=== PATIENT | female | born 1990 | race Caucasian/White ===

== ENCOUNTER 2022-06-09 10:36 | Day surgery (SDC) | payer MEDICAID, SELFPAY ==
[2022-06-09 11:04] LABS: Internal QC Validated? YES +Cl - CLEAR BKGD; Pregnancy, Urine Negative Negative
[2022-06-09] MEDS: Lactated Ringers 1,000 ML 15 ML IV (11:08)
[2022-06-09 11:09] VITALS: BP 112/67; PULSE 108; RESP 18; TEMP 37.5; O2SAT 96; BMI 42.5
--- NOTE | 2022-06-09 12:12 | HP.PCM_ITS ---
HPI - General HPI Narrative SUZANNE PICKARD, is a 32 F who has a history of multiple congenital abnormalities and multiple subsequent surgical interventions including on her urinary system. She has a neurogenic bladder with urinary retention and caths herself on a regular basis daily. She presents for a cystoscopic evaluation and injection of Botox, informed consent has been obtained. She is currently on antibiotics for a positive urine culture. She will continue these postoperatively. [facility]LY [facility] Medical History (Updated 06/09/22 @ 12:[address] Jocelyn Greer MD) Ambulates with cane Hx of fracture of leg Neurogenic bladder Non-smoker Shortness of breath on exertion Urge incontinence Urinary retention Home Medications cholecalciferol (vitamin D3) 50 mcg (2,000 unit) capsule 2,000 mcg PO DAILY 06/07/22 [History Last Taken 06/08/22] oxybutynin chloride 15 mg tablet,extended release 24 hr 15 mg PO DAILY 06/07/22 [History Last Taken 06/08/22] Allergy/AdvReac Type Severity Reaction Status Date / Time azithromycin Allergy Hives Verified 06/09/22 11:07 benzoin Allergy Other Verified 06/09/22 11:07 cefadroxil [From Duricef] Allergy Anaphylaxis Verified 06/09/22 11:07 codeine Allergy Vomiting Verified 06/09/22 11:07 latex Allergy Swelling Verified 06/09/22 11:07 nitrofurantoin Allergy Anaphylaxis Verified 06/09/22 11:07 [From Macrodantin] Surgical History (Updated 06/07/22 @ 09:49 by Hollie Arechiga) Hx of Achilles tendon repair Hx of knee surgery Hx of spinal fusion Hx of surgical procedure Hx of surgical procedure Hx of total hip arthroplasty Social History Smoking Status: Never smoker ROS Constitutional Constitutional: Denies anorexia, body ache(s), chills, fever(s) or weakness Eyes Eyes: Reports systems reviewed and no addt'l complaints, except as documented ENT HEENT: Reports systems reviewed and no addt'l complaints, except as documented Cardiovascular Cardiovascular: Denies chest pain or dyspnea at rest Respiratory/Chest Respiratory/Chest: Denies cough, dyspnea, hoarseness or inability to speak Gastrointestinal Gastrointestinal: Reports constipation; Denies nausea or vomiting Genitourinary Genitourinary: Reports urinary incontinence and other Details: Urinary retention, neurogenic bladder Musculoskeletal Musculoskeletal: Reports abnormal gait and difficulty walking Integumentary Integumentary: Reports systems reviewed and no addt'l complaints, except as documented Neurologic Neurologic: Reports abnormal gait and sensory deficit Psychiatric Psychiatric: Reports systems reviewed and no addt'l complaints, except as documented Endocrine Endocrinology: Reports systems reviewed and no addt'l complaints, except as documented Hematologic/Lymphatic Hematologic/Lymphatic: Reports systems reviewed and no addt'l complaints, except as documented Allergic/Immunologic Allergic/Immunologic: Reports systems reviewed and no addt'l complaints, except as documented Vital Signs Vital Signs Vital Signs: 06/09/22 11:09 06/09/22 11:09 Temperature 99.5 F H Temperature Source Temporal Pulse Rate 108 H Respiratory Rate 18 Respiratory Pattern Normal Blood Pressure 112/67 Blood Pressure Mean 82 Blood Pressure Source Monitor Blood Pressure Position Semi-Fowlers Blood Pressure Location Right Arm Pulse Ox 96 Oxygen Delivery Method Room Air Weight Weight: 68.492 kg Body Mass Index (BMI) 42.5 Physical Exam Const alert, oriented x3 and no apparent distress General Appearance: cooperative and comfortable HEENT normocephalic, head/scalp atraumatic, hearing grossly normal bilaterally and external nose normal Eyes General Eye: normal appearance of both eyes Neck supple General: normal visual inspection and trachea midline Lymph Lymphatic: no lymphedema noted Chest inspection of chest normal Resp normal respiratory effort, normal air movement and no retractions Cardio regular rate and regular rhythm GI soft to palpation, non-tender and non-distended no CVA tenderness Back/Spine no CVA tenderness Extremity no calf tenderness Skin no rashes or lesions noted, no wounds, skin turgor normal, no jaundice, no petechiae and no mottling Neuro oriented x3 Psych mental status grossly normal Results Lab / Micro Data Labs: Laboratory Results - last 24 hr 06/09/22 10:50: Urine Test Negative Assessment & Plan Assessment/Plan (1) Urge incontinence: (2) Neurogenic bladder: (3) Urinary retention: PLAN: Plan Proceed with cystoscopy, injection of Botox. Informed consent has been obtained.
[2022-06-09] MEDS: levoFLOXacin IV 500 MG/100 ML BAG 100 MG IV (12:35)
[2022-06-09] MEDS: Botulinum Toxin A 100 Units Vial 300 UNITS IJ (12:36)
[2022-06-09] MEDS: 0.9% Normal Saline (Pres. free 10 ML Vial (12:37)
[2022-06-09 12:49] VITALS: BP 106/68; BP 112/67; PULSE 107; RESP 16; TEMP 36.4; O2SAT 92
[2022-06-09 12:55] VITALS: BP 106/74; BP 112/67; PULSE 101; RESP 16; O2SAT 92
--- NOTE | 2022-06-09 12:59 | DCINST_ITS ---
Discharge Instructions Diet Discharge Diet: No restrictions Activity Discharge Activity: Return to Normal Activity Dressing / Incision Call your doctor if you observe: Fever of 101 or Higher Follow Up Care Please Follow Up With: Jocelyn Greer MD When: in the office in 2 weeks Test Results: Test results from this visit will be discussed in further detail at your follow- up appointment, if applicable. Discharge Plan Admission Attending Provider: Jocelyn Greer Primary Care Provider: Wally Chandra Discharge Orders/Prescriptions Prescriptions: Continued oxybutynin chloride 15 mg tablet extended release 24hr 15 mg PO DAILY Label Comments: TAKE 1 TABLET BY MOUTH EVERY DAY cholecalciferol (vitamin D3) 50 mcg (2,000 unit) capsule 2,000 mcg PO DAILY Label Comments: TAKE 1 CAPSULE BY MOUTH EVERY DAY Referrals / Follow Up: Wally Chandra DO [Primary Care Provider] - Disposition Disposition (needs filled in before D/C Order can be placed): Home, Self Care
[2022-06-09 13:00] VITALS: BP 104/74; BP 112/67; PULSE 98; RESP 16; O2SAT 92
--- NOTE | 2022-06-09 13:00 | OP.PCM_ITS ---
Report of Operation Date of Procedure: 06/09/22 Pre-Operative Diagnosis: Urge incontinence, neurogenic bladder, urinary retenti on Post-Operative Diagnosis: Same Surgery/Procedure Performed:: Cystoscopy, Botox 300 units injection Surgeon: Jocelyn Greer Type of Anesthesia: MAC Description of Procedure: Patient is a 32-year-old female with congenital abnormalities and subsequent neurogenic bladder with urinary retention and urge incontinence. She is on daily oxybutynin. She presents for cystoscopy and injection of Botox. Informed consent was obtained. She was taken to the operating room and placed on the operating room table. Anesthesia monitored the head, neck, airway, IV access and vital signs throughout the case. Once anesthesia was appropriately administered, the patient was placed into dorsolithotomy position was prepped and draped in usual sterile fashion. The cystoscope was inserted through the urethra under direct visualization into the urinary bladder. There were no masses, areas of erythema or abnormality identified. The bladder wall did appear to be thick. A total of 30 injections with 1 cc of Botox equivalent of 10 units/inj. were made. This was done in a systematic fashion throughout the bladder wall. At this time the patient's bladder was emptied and the cystoscope was removed. The case was terminated the patient was awakened and taken to the recovery room in good condition. There were no complications during this procedure. Grafts/Implants Used: None Complications None Admit VTE Documentation VTE Present on Admission: No VTE Mechan Device Prophylaxis: None VTE Pharm Prophylaxis ordered?: No Reason prophylaxis not ordered:: Treatment Not Indicated
[2022-06-09 13:05] VITALS: BP 105/72; BP 112/67; PULSE 90; RESP 16; TEMP 36.6; O2SAT 93
[2022-06-09 13:27] VITALS: BP 112/67; BP 91/59; PULSE 86; RESP 16; TEMP 36.5; O2SAT 95
== END 2022-06-09 13:42 | disposition home or self-care (01) ==
LOC: SDC 10:38 → AC 10:41
PROVIDERS: Anesthesiology; Referring Provider Urology; Visit Provider Urology
PROC: 3E0K8GC Introduction of Other Therapeutic Substance into Genitourinary Tract, Via Natural or Artificial Opening Endoscopic (ICD-10-PCS; CPT 52287; principal; 2022-06-09 12:00)
DX: R33.9 Retention of urine, unspecified (principal); N39.41 Urge incontinence; N31.9 Neuromuscular dysfunction of bladder, unspecified; Z98.1 Arthrodesis status; Z96.649 Presence of unspecified artificial hip joint
CPT/HCPCS: 51715; 00910; 81025; J7120; J0585; J2405; J3490

== ENCOUNTER → 2023-06-16 | Outpatient (CLI) | payer MEDICAID, SELFPAY ==
--- OUTSIDE RECORDS SUMMARY | 2023-06-16 16:48 | XMS RPT_ITS | CCD ---
Author Name Unknown Address [address] [place] [address] Organization [facility] Care Team Providers Care Corporate Manager Name Role Phone MARK CAMPBELL Unavailable Unavailable MARK CAMPBELL Unavailable Unavailable MARK CAMPBELL Unavailable Unavailable TRINIDAD RODRIGUEZ DO Primary Care Physician TRINIDAD RODRIGUEZ DO Primary Care Unavailable BRITTANY SALES, GISSEL Saez Attending Unavailable Allergies Allergy Classification Reported Allergen(s) Allergy Type Date of Onset Reaction(s) Facility (3 sources) Acetaminophen / HYDROcodone; Translations: [acetaminophen-hy drocodone] Drug Allergy [facility] (3 sources) Azithromycin; Translations: [azithromycin] Drug Allergy [facility] (3 sources) Cefadroxil; Translations: [cefadroxil] Drug Allergy [facility] (3 sources) Codeine; Translations: [codeine] Drug Allergy Dyspnea (finding) [facility] (3 sources) Iodine; Translations: [iodine] Drug Allergy [facility] (3 sources) Latex Allergy to substance [facility] Medications Current Medications Medication Drug Class(es) Dates Sig (Normalized) Sig (Original) [facility] (2 sources) Start: 01-21-2022 [facility] See Instructions, Bilateral Ankle-foot Orthosis Pt needing fitted for new braces. Dx: sacral agensis, # 1 EA, 0 Refill(s), 57.1 Start Date: 01/21/22 Status: Ordered 24 hr oxybutynin chloride 15 mg extended release oral tablet (3 sources) Cholinergic Muscarinic Antagonist Start: 11-08-2014 take 1 dose by mouth once daily Ditropan XL Dose : 15 mg =, Oral, qDay Start Date: 11/08/14 Status: Ordered Vitamin D3 50 mcg (2000 intl units) oral capsule (2 sources) Start: 01-14-2022 Vitamin D3 50 mcg (2000 intl units) oral capsule Dose : 2,000 unit(s) = 1 cap(s), Oral, Daily, # 100 cap(s), 3 Refill(s), Pharmacy: [facility]/pharmacy #[id number], Vitamin D insufficiency, 126, cm, 01/14/22 10:03:00 EDT, Height Start Date: 01/14/22 Status: Ordered Problems Active Problems Problem Classification Problem Date Documented Da te Episodic/Chronic Anxiety disorders (3 sources) Feeling irritable 12-08-2021 Episodic Genitourinary symptoms and ill-defined conditions (3 sources) Urinary incontinence 12-08-2021 Chronic Nutritional deficiencies (2 sources) Vitamin D deficiency 01-14-2022 Chronic Other congenital anomalies (3 sources) 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 Other diseases of bladder and urethra (3 sources) Neurogenic bladder 11-08-2014 Chronic Other nutritional; endocrine; and metabolic disorders (1 source) Body mass index 40+ - severely obese 12-08-2021 Chronic Residual codes; unclassified (3 sources) Family history of diabetes mellitus type 1 12-08-2021 Episodic Residual codes; unclassified (3 sources) Past history of procedure 12-08-2021 Episodic Unclassified (3 sources) Finding related to ability to manage personal health care 12-08-2021 Past or Other Problems Problem Classification Problem Date Documented Da te Episodic/Chronic Medical examination/evaluation (2 sources) Encounter for general adult medical examination with abnormal findings; Translations: [ENCOUNTER FOR GENERAL ADULT MEDICAL EXAM W ABNORMAL FINDINGS] Onset: 11-16-2016 Episodic Results Test Name Value Interpretation Reference Range Facil ity Encounters Encounter Date Encounter Type Care Provider Facility Start: 05-10-2023 End: 05-11-2023 ambulatory TRINIDAD RODRIGUEZ DO Facility:B Start: 05-10-2023 End: 05-10-2023 Patient encounter procedure GISSEL SOTO MD [facility] Start: 04-13-2022 End: 04-13-2022 Patient encounter procedure GISSEL SOTO MD [facility] Start: 01-07-2022 End: 01-07-2022 Patient encounter procedure TRINIDAD RODRIGUEZ DO [facility] Start: 11-16-2016 End: 11-17-2016 Ambulatory MARK CAMPBELL Facility:[facility] [place] Procedures Date Procedure Procedure Detail Performing Clinician Kyphoplasty of fract ure of spine using fluoroscopic guidance TRINIDAD RODRIGUEZ DO Total nephrectomy TRINIDAD PHELPS DO Immunizations Immunization Date Immunization Notes Care Provider [facility] 05-24-2021 SARS-CoV-2 mRNA (tozinameran) vaccine GISSEL S[facility] 04-02-2021 influenza virus vacc ine, unspecified formulation GISSEL SOTO MD [facility] 09-23-2020 SARS-CoV-2 mRNA (tozinameran) vaccine GISSEL SOTO MD [facility] 09-02-2020 SARS-CoV-2 mRNA (tozinameran) vaccine GISSEL SOTO MD [facility] 01-24-2020 influenza virus vacc ine, unspecified formulation GISSEL SOTO MD [facility] 05-09-2019 influenza virus vacc ine, unspecified formulation GISSEL SOTO MD [facility] 02-23-2018 influenza virus vacc ine, unspecified formulation GISSEL SOTO MD [facility] 02-18-2017 influenza virus vacc ine, unspecified formulation GISSEL SOTO MD [facility] 02-13-2016 influenza virus vacc ine, unspecified formulation GISSEL SOTO MD [facility] 03-29-2015 influenza virus vacc ine, unspecified formulation GISSEL SOTO MD [facility] 03-01-2014 influenza virus vacc ine, unspecified formulation GISSEL SOTO MD [facility] 02-13-2013 influenza virus vacc ine, unspecified formulation GISSEL SOTO MD [facility] 02-13-2013 tetanus toxoid, redu fozia diphtheria toxoid, and acellular pertussis vaccine, adsorbed GISSEL SOTO MD [facility] 12-12-2007 meningococcal polysaccharide (groups A, C, Y and W-135) diphtheria toxoid conjugate vaccine (MCV4P) GISSEL SOTO MD [facility] 01-22-2007 hepatitis B pediatri c vaccine GISSEL SOTO MD [facility] 01-22-2007 tetanus toxoid, redu fozia diphtheria toxoid, and acellular pertussis vaccine, adsorbed GISSEL SOTO MD [facility] 12-17-2002 hepatitis B pediatri c vaccine GISSEL SOTO MD [facility] 12-17-2002 measles/mumps/rubell a virus vaccine GISSEL SOTO MD [facility] 09-16-2000 hepatitis B pediatri c vaccine GISSEL SOTO MD [facility] Payers Date Payer Category Payer Unknown [id number] 1990 Unknown [id number] Social History Date Type Detail Facility Start: 03-22-2019 Tobacco smoking status Never s moked tobacco (finding) [facility] Sex Assigned At Sex [facility] Clinical Note 05-10-2023 Note Date & Type Note Facility 05-10-2023 Note ORIGINAL EXAMINATION: ULTRASOUND OF THE KIDNEYS 05/10/2023 12:56 pm COMPARISON: Renal ultrasound 04/13/2022. HISTORY: ORDERING SYSTEM PROVIDED HISTORY: Reason for Exam: neurogenic bladder Neurogenic bladder, UTI. Patient self catheterizes. No recent UTI per patient. FINDINGS: The urinary bladder is under distended limiting evaluation. Prevoid volume of 127 mL. Patient reportedly self catheterizes and did not bring material with her. The right kidney is slightly atrophic in relation to the left kidney and measures 7.1 x 4.2 x 3.7 cm. Decreased renal cortical thickness. These findings are similar in appearance to the reference prior study. Normal renal cortical echogenicity. No solid renal mass. No hydronephrosis or evidence of nephrolithiasis. The left kidney measures 11.3 x 5.5 x 6.2 cm. Normal renal cortical echogenicity and thickness. No solid renal mass. No hydronephrosis or evidence of nephrolithiasis. IMPRESSION: Stable yhev-oz-oxwsctol right renal atrophy. Unremarkable appearance of the left kidney. Under distended urinary bladder limiting evaluation. I have personally reviewed the images of this examination, agree with resident's findings and interpretation. Interpreted by: Law Tejeda MD Preliminary Report By: Elio Castrejon Electronically signed By Law Tejeda MD Dictated Date: 05/10/2023 1:35:26 PM Prelim Date: 05/10/2023 4:21:27 PM Sign Date: 05/10/2023 4:21:27 PM Ordering Provider: GISSEL SOTO [facility] Clinical Note 01-28-2021 Note Date & Type Note Facility 01-28-2021 Note UROLOGY HISTORY AND PHYSICAL NOTE NAME: Herminia Acosta DATE OF SERVICE: 01/28/2021 PRIMARY CARE PROVIDER: Mark Campbell MD HOSPITAL DAY: Hospital Day: 1 CHIEF COMPLAINT: Bladder calculus ASSESSMENT: 30 y/o F who presents with bladder calculus RECOMMENDATIONS: -OR with Dr. Bro -Consent has been obtained HISTORY OF PRESENT ILLNESS: Herminia is a 30 y.o. female who presents with bladder calculus. Patient presents today for OR. No recent changes in health. PAST MEDICAL HISTORY: Past Medical History: Diagnosis Date Bladder neurogenesis Scoliosis Spinal bifida, closed Urinary incontinence UTI (urinary tract infection) PAST SURGICAL HISTORY: Past Surgical History: Procedure Laterality Date ABDOMEN SURGERY N/A 12/08/2017 APPENDICOSTOMY revision performed by Nura Timmons MD at [facility] OR ANKLE SURGERY Left HIP SURGERY Bilateral KNEE SURGERY Left PARTIAL NEPHRECTOMY Right SPINAL FUSION STOMACH SURGERY DRUG/FOOD ALLERGIES: Allergies Allergen Reactions Codeine Nausea And Vomiting Duricef [Cefadroxil] Swelling Latex Swelling Macrodantin [Nitrofurantoin Macrocrystal] Shortness Of Breath Zithromax [Azithromycin] Hives Tincture Of Benzoin [Benzoin] Other (See Comments) Burning MEDICATIONS: Prior to Admission Meds: Medications Prior to Admission Medication Sig Dispense Refill Last Dose sulfamethoxazole-trimethoprim (BACTRIM) 100-20 MG Take 100 mg by mouth 01/27/2021 Oxybutynin Chloride (DITROPAN-XL) 15 MG TB24 CR tablet TAKE 1 TABLET BY MOUTH EVERY DAY 90 Tablet 3 01/27/2021 Catheters (URETHRAL CATHETER) MISC Urethral Catheter, lubricant and insertion kit. Type: Straight Size: 18 Fr. Directions: Cath as directed 180 Each 1 Scheduled Meds: Continuous Infusions: PRN Meds:. FAMILY HISTORY: Family History Problem Relation Age of Onset No known problems Mother No known problems Father REVIEW OF SYSTEMS: Pertinent items are noted in HPI. Pertinent items are noted in HPI. Please see H&P. Constitutional: negative for abnormal development and fevers Eyes: negative for visual disturbance Respiratory: negative for stridor and wheezing Cardiovascular: negative for syncope Gastrointestinal: negative for abdominal pain, nausea and vomiting Genitourinary:negative for dysuria and hematuria Integument: negative for skin color change Musculoskeletal:negative for muscle weakness OBJECTIVE: Vitals: 01/28/21 1303 BP: 114/76 Pulse: 100 Resp: 16 Temp: 36.9 C (98.4 F) Height: (!) 125 cm Weight - Scale: 54.9 kg BSA (Calculated - sq m): 1.38 sq meters Body mass index is 35.14 kg/m . Intake/Output: No intake or output data in the 24 hours ending 01/28/21 1427 General: Patient appears in no acute distress and alert Head: atraumatic Eyes: extraocular movements are intact Neck: supple Chest: normal effort, lungs clear to auscultation Cardiac: no cyanosis, regular rate and rhythm Abdomen: soft, nontender and nondistended : no cvat Skin: pink, warm, well perfused Musculoskeletal: normal tone, with full range of motion DIAGNOSTIC STUDIES REVIEWED: BMP: [ CBC: Invalid input(s): CORRWBC Blood culture: No results found for: BLOODCULTURE Urine culture: Urine Culture Date Value Ref Range Status 12/10/2020 Staphylococcus epidermidis (A) Final Comment: >100,000 CFU/ml Ryan Petty MD01/28/2021 [facility] Clinical Note 12-07-2020 Note Date & Type Note Facility 12-07-2020 Note Is this a pre-proced ure screening test?->Yes [id number]&Nasopharyngeal SARS-CoV-2 (COVID-19) RT-PCR, Qualitative: - Source: [facility] Collected: 12/07/20 11:40 Site: Preop 12/10 Received : 12/07/20 14:50 SARS-CoV-2 (COVID-19) RT-PCR, QualitFINAL 12/08/20 15:53 - RESULT: NEGATIVE - SARS-CoV-2 RNA was NOT detected Lineage B-betacoronavirus RNA was NOT detected. - INTERPRETATION: A negative result indicates severe acute respiratory syndrome coronavirus 2 (SARS-CoV-2) RNA was not detected. A negative result means that SARS-CoV-2 RNA was not present in the specimen above the limit of detection. Negative results do not preclude SARS-CoV-2 (COVID19) infection and should not be used as the sole basis for patient management decisions. SARS-CoV-2 is a lineage B-betacoronavirus. Lineage B-betacoronavirus was not detected. Negative results must be combined with clinical observations, patient history, and epidemio- logical information. The possibility of a false negative result should especially be considered if the patient's recent exposures or clinical presentation suggest that SARS-CoV-2 infection is possible, and diagnostic tests for other causes of illness e.g., other respiratory illness, are negative. If SARS-CoV-2 infection is still suspected, re-testing should be considered. - METHOD: Real-time reverse transcriptase PCR amplification for the qualitative detection and differentiation of lineage B-betacoronavirus (target E gene) and severe acute respiratory syndrome coronavirus 2 (SARS-CoV-2) (target S gene) specific RNA using the [employer] SARS-CoV-2 RT-PCR Kit [place] on the [employer] from [employer]. - COMMENT: This test has received FDA Emergency Use Authorization (EUA) and has been verified by [facility]. This test is only authorized for the duration of the public health emergency declaration and the circumstances that exist to justify the authorization of the emergency use of in vitro diagnostic tests for the detection of SARS-CoV-2 virus and/or diagnosis of COVID-19 infection under section 564(b)(1) of the Act, 21 U.S.C. 360bbb-3(b)(1), unless the authorization is terminated or revoked sooner. This test has not been FDA cleared or approved. Results should be used in conjunction with clinical findings, and should not form the sole basis for a diagnosis or treatment decision. Reviewed by: Jeni Ocasio [facility] Evaluation + Plan note Note Date & Type Note Facility Evaluation + Plan note Future Appointments Appointment Date:01/14/2022 10:00:00 AM Scheduled Provider:TRINIDAD RODRIGUEZ DO Location:[facility] Appointment Type:PC OV Diagnostic Tests PendingHepatitis C Antibody IgG 01/07/22Vitamin D Level 01/07/22 [facility] Evaluation + Plan note Note Date & Type Note Facility Evaluation + Plan note Future Appointments Appointment Date:06/02/2023 03:00:00 PM Scheduled Provider:TRINIDAD RODRIGUEZ DO Location:[facility] Appointment Type:PC Wellness Annual [facility] Hospital course Narrative Note Date & Type Note Facility Hospital course Narrative No data available for this section [facility] Hospital Discharge instructions Note Date & Type Note Facility Hospital Discharge instructions No data available for this section [facility] Progress note Note Date & Type Note Facility Progress note No data available for this section [facility] Summary Purpose Family History No Family History Records FoundNo Family History Records Found No data available for this section No Family History Records Found Advance Directives No Advanced Directives Records FoundNo Advanced Directives Records FoundNo Advanced Directives Records Found Additional Source Comments INFORMATION SOURCE (unrecogn ized section and content) DATE CREATED AUTHOR AUTHOR'S ORGANIZ ATION 05/22/2021 [facility] DATE CREATED AUTHOR AUTHOR'S ORGANIZ ATION 05/11/2023 [facility] ([place] Care Team (unrecognized sect ion and content) Care Team Personnel Name: TRINIDAD RODRIGUEZ DO Position: P4 Physician - Primary Care Member Role: Primary Care Physician Address: Address: [address] [place] [id number]- Care Team Related Persons Name: JOSE ACOSTA Address: Home [address] [place], [place] [id number] Care Team Personnel Name: TRINIDAD RODRIGUEZ DO Position: P4 Physician - Primary Care Member Role: Primary Care Physician Address: Address: [address] [place] [id number] Care Team Related Persons Name: JOSE ACOSTA Address: Home [address] [place], [place] [phone] Patient Care team informatio n (unrecognized section and content) Care Team Personnel Name: TRINIDAD RODRIGUEZ DO Position: P4 Physician - Primary Care Member Role: Primary Care Physician Address: Address: [address] [place] [phone] [place] [address] Care Team Related Persons Name: JOSE ACOSTA Address: Home [address] [place], [place] [id number] US FOR RECORDS PERTAINING TO PATIENTS WHO ARE OR HAVE BEEN ENROLLED IN A CHEMICAL DEPENDENCY/SUBSTANCEABUSE PROGRAM, SOME INFORMATION MAY BE OMITTED. This clinical summary was aggregated from multiple sources. Caution should be exercised in using it in the provision of clinical care. This summary normalizes information from multiple sources, and as a consequence, information in this document may materially change the coding, format and clinical context of patient data. In addition, data may be omitted in some cases. CLINICAL DECISIONS SHOULD BE BASED ON THE PRIMARY CLINICAL RECORDS. [facility] provides no warranty or guarantee of the accuracy or completeness of information in this document.
== END | disposition home or self-care (01) ==
LOC: MTLAB 13:43
PROVIDERS: Referring Provider Urology; Visit Provider Urology
DX: N31.9 Neuromuscular dysfunction of bladder, unspecified (principal); N39.0 Urinary tract infection, site not specified; N39.41 Urge incontinence; K59.2 Neurogenic bowel, not elsewhere classified; R33.9 Retention of urine, unspecified
CPT/HCPCS: 87077; 87086; 87088; 87186

== ENCOUNTER 2023-07-06 05:48 | Day surgery (SDC) | payer MEDICAID, SELFPAY ==
[2023-07-06] VITALS (7 sets, daily range): BP systolic 110–124; BP diastolic 60–85; PULSE 82–117; RESP 16–18; TEMP 36.2–37.3; O2SAT 92–98; BMI 35.9
--- OUTSIDE RECORDS SUMMARY | 2023-07-06 05:50 | XMS RPT_ITS | CCD ---
Author Name Unknown Address [address] [place] [address] Organization [facility] Care Team Providers Care Commissions Manager Name Role Phone MARK CAMPBELL Unavailable Unavailable MARK CAMPBELL Unavailable Unavailable MARK CAMPBELL Unavailable Unavailable TRINIDAD RODRIGUEZ DO Primary Care Physician TRINIDAD RODRIGUEZ DO Primary Care Unavailable BRITTANY SALES, GISSEL Saez Attending Unavailable Allergies Allergy Classification Reported Allergen(s) Allergy Type Date of Onset Reaction(s) Facility (3 sources) Acetaminophen / HYDROcodone; Translations: [acetaminophen-hy drocodone] Drug Allergy [facility] (3 sources) Azithromycin; Translations: [azithromycin] Drug Allergy [facility] (3 sources) Cefadroxil; Translations: [cefadroxil] Drug Allergy [facility] (3 sources) Codeine; Translations: [codeine] Drug Allergy Dyspnea (finding) [facility] (3 sources) Iodine; Translations: [iodine] Drug Allergy [facility] (3 sources) Latex Allergy to substance [facility] Medications Current Medications Medication Drug Class(es) Dates [...] Daily, # 100 cap(s), 3 Refill(s), Pharmacy: [facility]/pharmacy #[id number], Vitamin D insufficiency, 126, cm, 01/14/22 [...] 05-10-2023 Patient encounter procedure GISSEL SOTO MD [facility] Start: 04-13-2022 End: 04-13-2022 Patient encounter procedure GISSEL SOTO MD [facility] Start: 01-07-2022 End: 01-07-2022 Patient encounter procedure TRINIDAD RODRIGUEZ DO [facility] Start: 11-16-2016 End: 11-17-2016 Ambulatory MARK CAMPBELL Facility:[facility] [place] Procedures Date Procedure Procedure Detail Performing Clinician Kyphoplasty of fract ure of spine using fluoroscopic guidance TRINIDAD RODRIGUEZ DO Total nephrectomy TRINIDAD PHELPS DO Immunizations Immunization Date Immunization Notes Care Provider [facility] 05-24-2021 SARS-CoV-2 mRNA (tozinameran) vaccine GISSEL SOTO MD [facility] 04-02-2021 influenza virus vacc ine, unspecified formulation GISSEL SOTO MD [facility] 09-23-2020 SARS-CoV-2 mRNA (tozinameran) vaccine GISSEL SOTO MD [facility] 09-02-2020 SARS-CoV-2 mRNA (tozinameran) vaccine GISSEL SOTO MD [facility] 01-24-2020 influenza virus vacc ine, unspecified formulation GISSEL SOTO MD [facility] 05-09-2019 influenza virus vacc ine, unspecified formulation GISSEL SOTO MD [facility] 02-23-2018 influenza virus vacc ine, unspecified formulation GISSEL SOTO MD [facility] 02-18-2017 influenza virus vacc ine, unspecified formulation GISSEL SOTO MD [facility] 02-13-2016 influenza virus vacc ine, unspecified formulation GISSEL SOTO MD [facility] 03-29-2015 influenza virus vacc ine, unspecified formulation GISSEL SOTO MD [facility] 03-01-2014 influenza virus vacc ine, unspecified formulation GISSEL SOTO MD [facility] 02-13-2013 influenza virus vacc ine, unspecified formulation GISSEL SOTO MD [facility] 02-13-2013 tetanus toxoid, redu fozia diphtheria toxoid, and acellular pertussis vaccine, adsorbed GISSEL SOTO MD [facility] 12-12-2007 meningococcal polysaccharide (groups A, C, Y and W-135) diphtheria toxoid conjugate vaccine (MCV4P) GISSEL SOTO MD [facility] 01-22-2007 hepatitis B pediatri c vaccine GISSEL SOTO MD [facility] 01-22-2007 tetanus toxoid, redu fozia diphtheria toxoid, and acellular pertussis vaccine, adsorbed GISSEL SOTO MD [facility] 12-17-2002 hepatitis B pediatri c vaccine GISSEL SOTO MD [facility] 12-17-2002 measles/mumps/rubell a virus vaccine GISSEL SOTO MD [facility] 09-16-2000 hepatitis B pediatri c vaccine GISSEL SOTO MD [facility] [place] Payers Date Payer Category Payer Unknown [id number] 1990 Unknown [id number] Social History Date Type Detail Facility Start: 03-22-2019 Tobacco smoking status Never s moked tobacco (finding) [facility] Sex Assigned At Sex [facility] Clinical Note 05-10-2023 Note Date & [...] hydronephrosis or evidence of nephrolithiasis. IMPRESSION: Stable [id number] right renal atrophy. Unremarkable appearance of the [...] 05/10/2023 4:21:27 PM Ordering Provider: GISSEL SOTO [facility] Clinical Note 01-28-2021 Note Date & Type [...] revision performed by Nura Timmons MD at [facility] OR ANKLE SURGERY Left HIP SURGERY Bilateral [...] Final Comment: >100,000 CFU/ml Ryan Petty MD01/28/2021 [facility] Clinical Note 12-07-2020 Note Date & Type Note Facility 12-07-2020 Note Is this a pre-proced ure screening test?->Yes [id number]&Nasopharyngeal SARS-CoV-2 (COVID-19) RT-PCR, Qualitative: - Source: NPH [...] (target S gene) specific RNA using the [employer] SARS-CoV-2 RT-PCR Kit [place] on the [employer] from [employer]. - COMMENT: This test has received FDA Emergency Use Authorization (EUA) and has been verified by [facility]. This test is only authorized for the [...] or treatment decision. Reviewed by: Jeni Ocasio [facility] Evaluation + Plan note Note Date & Type Note Facility Evaluation + Plan note Future Appointments Appointment Date:01/14/2022 10:00:00 AM Scheduled Provider:TRINIDAD RODRIGUEZ DO Location:[facility] Appointment Type:PC OV Diagnostic Tests PendingHepatitis C Antibody IgG 01/07/22Vitamin D Level 01/07/22 [facility] Evaluation + Plan note Note Date & Type Note Facility Evaluation + Plan note Future Appointments Appointment Date:06/02/2023 03:00:00 PM Scheduled Provider:TRINIDAD RODRIGUEZ DO Location:[facility] Appointment Type:PC Wellness Annual [facility] Hospital course Narrative Note Date & Type Note Facility Hospital course Narrative No data available for this section [facility] Hospital Discharge instructions Note Date & Type Note Facility Hospital Discharge instructions No data available for this section [facility] Progress note Note Date & Type Note Facility Progress note No data available for this section [facility] Summary Purpose Family History No Family History Records FoundNo Family History Records Found No data available for this section No Family History Records Found Advance Directives No Advanced Directives Records FoundNo Advanced Directives Records FoundNo Advanced Directives Records Found Additional Source Comments INFORMATION SOURCE (unrecogn ized section and content) DATE CREATED AUTHOR AUTHOR'S ORGANIZ ATION 05/22/2021 [facility] DATE CREATED AUTHOR AUTHOR'S ORGANIZ ATION 05/11/2023 [facility] ([place]) Care Team (unrecognized sect ion and content) Care Team Personnel Name: TRINIDAD RODRIGUEZ DO Position: P4 Physician - Primary Care Member Role: Primary Care Physician Address: Address: [address] [place] [id number]- Care Team Related Persons Name: JOSE ACOSTA Address: Home [address] [place], [place] [id number] Care Team Personnel Name: TRINIDAD RODRIGUEZ DO Position: P4 Physician - Primary Care Member Role: Primary Care Physician Address: Address: [address] [place] [id number] Care Team Related Persons Name: JOSE ACOSTA Address: Home [address] [place], [place] [id number] Patient Care team informatio n (unrecognized section and content) Care Team Personnel Name: TRINIDAD RODRIGUEZ DO Position: P4 Physician - Primary Care Member Role: Primary Care Physician Address: Address: [address] [place] [id number] [place] [address] Care Team Related Persons Name: JOSE ACOSTA Address: Home [address] [place], [place] [id number] US FOR RECORDS PERTAINING TO PATIENTS WHO [...] BE BASED ON THE PRIMARY CLINICAL RECORDS. [facility] provides no warranty or guarantee of the accuracy or completeness of information in this document.
[2023-07-06] MEDS: Lactated Ringers 1,000 ML 15 ML IV (06:26)
[2023-07-06] MEDS: Ciprofloxacin 400 MG/200 ML BAG 200 MG IV (06:46)
--- NOTE | 2023-07-06 07:19 | PCM.HP.STD ---
[facility] - General General Date of Service: 07/06/23 Chief Complaint: neurogenic bladder with urge incontinence and urinary retention HPI Narrative SUZANNE PICKARD, is a 33 F who presents for her routine cystoscopy with Botox 300 unit injection. She had urine culture and is on appropriate antibiotic coverage. [facility] Medical History Ambulates with cane Hx of fracture of leg Neurogenic bladder Non-smoker Shortness of breath on exertion Urge incontinence Urinary retention Home Medications cholecalciferol (vitamin D3) 50 mcg (2,000 unit) capsule 2,000 mcg PO DAILY 06/07/22 [History Last Taken 07/05/23] Lactobacillus acidophilus 10 billion cell capsule (Probacap) 100 mmu cells PO DAILY 06/14/23 [History Last Taken 07/05/23] ascorbic acid (vitamin C) 500 mg tablet (Vitamin C) 500 mg PO DAILY 06/14/23 [History Last Taken 07/05/23] famotidine 20 mg tablet 20 mg PO DAILY 06/14/23 [History Last Taken 07/05/23] vibegron 75 mg tablet (Gemtesa) 75 mg PO DAILY 06/14/23 [History Last Taken 07/05/23] sulfamethoxazole 800 mg-trimethoprim 160 mg tablet 1 tab PO Q12H preop 07/06/23 [History Last Taken 07/05/23] Allergy/AdvReac Type Severity Reaction Status Date / Time azithromycin Allergy Hives Verified 06/14/23 13:03 benzoin Allergy Other Verified 06/14/23 13:03 cefadroxil [From Duricef] Allergy Anaphylaxis Verified 06/14/23 13:03 codeine Allergy Vomiting Verified 06/14/23 13:03 latex Allergy Swelling Verified 06/14/23 13:03 nitrofurantoin Allergy Anaphylaxis Verified 06/14/23 13:03 [From Macrodantin] Surgical History Hx of Achilles tendon repair Hx of cystoscopy Hx of knee surgery Hx of spinal fusion Hx of surgical procedure Hx of surgical procedure Hx of total hip arthroplasty Social History Smoking Status: Never smoker ROS Constitutional Constitutional: Reports systems reviewed and no addt'l complaints, except as documented Eyes Eyes: Reports systems reviewed and no addt'l complaints, except as documented ENT HEENT: Reports systems reviewed and no addt'l complaints, except as documented Cardiovascular Cardiovascular: Reports systems reviewed and no addt'l complaints, except as documented Respiratory/Chest Respiratory/Chest: Reports dyspnea on exertion Gastrointestinal Gastrointestinal: Denies abdominal pain, anorexia, nausea or vomiting Genitourinary Genitourinary: Reports urinary incontinence and other Details: urinary retention ; Denies dysuria, flank pain, hematuria or urinary urgency Musculoskeletal Musculoskeletal: Reports abnormal gait and muscle weakness Integumentary Integumentary: Reports systems reviewed and no addt'l complaints, except as documented Neurologic Neurologic: Reports other Details: no change from baseline defects. Psychiatric Psychiatric: Reports systems reviewed and no addt'l complaints, except as documented Endocrine Endocrinology: Reports systems reviewed and no addt'l complaints, except as documented Hematologic/Lymphatic Hematologic/Lymphatic: Reports systems reviewed and no addt'l complaints, except as documented Allergic/Immunologic Allergic/Immunologic: Reports systems reviewed and no addt'l complaints, except as documented Vital Signs Vital Signs Vital Signs: 07/06/23 06:27 07/06/23 06:27 Temperature 99.2 F H Temperature Source Temporal Pulse Rate 93 Respiratory Rate 18 Respiratory Pattern Normal Blood Pressure 110/60 Blood Pressure Mean 76 Blood Pressure Source Monitor Blood Pressure Position Semi-Fowlers Blood Pressure Location Right Arm Pulse Ox 98 Oxygen Delivery Method Room Air Weight Weight: 72.575 kg Body Mass Index (BMI) 35.9 Physical Exam Const alert, oriented x3 and no apparent distress General Appearance: cooperative and comfortable HEENT normocephalic, head/scalp atraumatic, hearing grossly normal bilaterally, external ears normal, external nose normal and moist oral mucous membranes Eyes General Eye: normal appearance of both eyes Neck supple General: normal visual inspection and trachea midline Chest inspection of chest normal Resp normal respiratory effort, normal air movement, no retractions and no use of accessory muscles Cardio regular rate and regular rhythm GI soft to palpation, non-tender and non-distended no CVA tenderness Back/Spine no CVA tenderness Extremity no calf tenderness and no pedal edema Skin no rashes or lesions noted, no wounds, skin turgor normal, no jaundice, no petechiae and no mottling Neuro oriented x3, CN's II-XII intact bilaterally and moves all extremities Psych mental status grossly normal and thought process normal Assessment & Plan Assessment/Plan (1) Urinary retention: (2) Neurogenic bladder: (3) Urge incontinence: PLAN: Plan cystoscopy with botox 300 unit injection. informed consent obtained
--- NOTE | 2023-07-06 07:24 | DCINST_ITS ---
Discharge Instructions Diet Discharge Diet: No restrictions Activity Discharge Activity: Return to Normal Activity Dressing / Incision Call your doctor if you observe: Fever of 101 or Higher, Inability to urinate, Inability to have a bowel movement and Uncontrolled pain Follow Up Care Please Follow Up With: Jocelyn Greer MD When: the office will call to schedule follow up Test Results: Test results from this visit will be discussed in further detail at your follow- up appointment, if applicable. Discharge Plan Admission Attending Provider: Jocelyn Greer Primary Care Provider: Wally Chandra Discharge Orders/Prescriptions Prescriptions: Continued cholecalciferol (vitamin D3) 50 mcg (2,000 unit) capsule 2,000 mcg PO DAILY Patient Comments: TAKE 1 CAPSULE BY MOUTH EVERY DAY Gemtesa 75 mg tablet 75 mg PO DAILY Patient Comments: TAKE 1 TABLET BY MOUTH EVERY DAY famotidine 20 mg tablet 20 mg PO DAILY Patient Comments: TAKE 1 TABLET BY MOUTH EVERY DAY Probacap 10 billion cell capsule 100 mmu cells PO DAILY ascorbic acid (vitamin C) [Vitamin C] 500 mg tablet 500 mg PO DAILY Patient Comments: TAKE 1 TABLET BY MOUTH EVERY DAY sulfamethoxazole-trimethoprim 800-160 mg tablet 1 tab PO Q12H Referrals / Follow Up: Wally Chandra DO [Primary Care Provider] - Disposition Disposition (needs filled in before D/C Order can be placed): Home, Self Care
--- NOTE | 2023-07-06 07:25 | OP.PCM_ITS ---
Report of Operation Date of Procedure: 07/06/23 Pre-Operative Diagnosis: neurogenic bladder with urinary retention and urge inc ontinence Post-Operative Diagnosis: same Surgery/Procedure Performed:: cystoscopy and Botox 300 unit injection Surgeon: Jocelyn Greer Type of Anesthesia: MAC Special Medications: Botox 300 units Description of Procedure: Patient is a 33-year-old female with a neurogenic bladder, urge incontinence and urinary retention who caths at home and is on Gemtesa. She presents today for her routine cystoscopy with Botox 300 units injection. Informed consent has been obtained. The patient was taken to the operating room and placed on the operating room table. Anesthesia monitored the head, neck, airway, IV access and vital signs throughout the case. Once anesthesia was appropriate ministered, the patient was placed into dorsolithotomy position was prepped and draped in usual sterile fashion. At this time the cystoscope was inserted through the urethra under direct visualization into the urinary bladder. Visualization of the bladder and urethral mucosa revealed no evidence of mass, erythema or foreign body. Using the Botox needle, a total of 30 cc and 30 injections of 1 cc each were made in systematic fashion throughout the bladder. At the conclusion of this procedure, the patient's bladder was emptied and the cystoscope was removed. There were no complications during this procedure. The patient was awakened and taken to the recovery room in good condition. Grafts/Implants Used: None Complications none Admit VTE Documentation VTE Present on Admission: Yes VTE Mechan Device Prophylaxis: SCD's VTE Pharm Prophylaxis ordered?: No Reason prophylaxis not ordered:: Treatment Not Indicated
[2023-07-06] MEDS: Botulinum Toxin A 100 Units Vial 300 UNITS IJ (07:45)
[2023-07-06] MEDS: 0.9% Normal Saline (Pres. free 10 ML Vial (07:45)
== END 2023-07-06 09:17 | disposition home or self-care (01) ==
LOC: SDC 05:49 → AC 05:49
PROVIDERS: Referring Provider Urology; Visit Provider Urology
PROC: 3E0K8GC Introduction of Other Therapeutic Substance into Genitourinary Tract, Via Natural or Artificial Opening Endoscopic (ICD-10-PCS; CPT 52287; principal; 2023-07-06 07:20)
DX: R33.9 Retention of urine, unspecified (principal); N31.9 Neuromuscular dysfunction of bladder, unspecified; N39.41 Urge incontinence; Z98.1 Arthrodesis status; Z96.649 Presence of unspecified artificial hip joint; Z87.81 Personal history of (healed) traumatic fracture
CPT/HCPCS: 52287; 00910; J7120; J0585; J0744; J2405; J3490

== ENCOUNTER → 2024-04-02 | Outpatient (CLI) | payer MEDICAID, SELFPAY ==
--- NOTE | 2024-04-02 13:53 | US_ITS ---
STUDY: RENAL ULTRASOUND - COMPLETE REASON FOR EXAM: Female, 34 years old. URINARY RETENTION TECHNIQUE: Ultrasound evaluation of the kidneys was performed with real-time and static johnson-scale imaging. COMPARISON: None. FINDINGS: RIGHT KIDNEY: with moderate renal atrophy. The right kidney measures 6.7 cm x 5.1 cm x 3.2 cm. There is a normal cortex of the right kidney. The renal cortex measures 1.0 cm. There is a 1.4 cm x 1.6 cm x 1 cm cyst in the midportion. There are no right renal calculi. There is mild hydronephrosis of the right kidney. DISTAL RIGHT URETER: There is non-visualization of the distal right ureter. There is no demonstrated right ureterovesical junction calculus. There is a visualized right ureteral jet. LEFT KIDNEY: Normal location of the left kidney, which is normal in size. The left kidney measures 9.6 cm x 4.3 cm x 6.6 cm. There is a normal cortex of the left kidney. The renal cortex measures 2.3 cm. There is no left renal mass or cyst. There are no left renal calculi. There is mild hydronephrosis of the left kidney. DISTAL LEFT URETER: There is non-visualization of the distal left ureter. There is no demonstrated left ureterovesical junction calculus. There is a visualized left ureteral jet. BLADDER: The distended urinary bladder has a volume of 288 ml. The empty urinary bladder has a volume of 0 ml. There is a normal wall thickness of the distended urinary bladder. There is no demonstrated mass within the urinary bladder. There are no demonstrated bladder calculi. US/Kidney and Bladder IMPRESSION: Right renal atrophy. Small right renal cysts. No post void residual. Electronically Signed: Rolo Topete MD at 14:56 EST ,
== END | disposition home or self-care (01) ==
LOC: US 13:51
PROVIDERS: Referring Provider Urology; Visit Provider Urology
DX: N31.9 Neuromuscular dysfunction of bladder, unspecified (principal); R33.9 Retention of urine, unspecified
CPT/HCPCS: 76770

== ENCOUNTER → 2024-04-09 | Outpatient (CLI) | payer MEDICAID, SELFPAY ==
[2024-04-09 18:23] LABS: Anion Gap 7 (5-15); BUN 12 mg/dL (7-18); BUN/Creat Ratio 22.9 RATIO (10-20); Calcium,Total 9.6 mg/dL (8.5-10.1); Chloride 107 mmol/L (98-107); Creatinine, Serum 0.52 mg/dL (0.55-1.02); EST Glomerular Filtration Rate 141 mL/min (>60); Est Glom Filt Rate - Afr Amer 171 mL/min (>60); Glucose 82 mg/dL (74-106); Potassium 3.5 mmol/L (3.5-5.1); Sodium Level 139 mmol/L (136-145)
== END | disposition home or self-care (01) ==
LOC: MTLAB 14:57
PROVIDERS: Referring Provider Urology; Visit Provider Urology
DX: R33.9 Retention of urine, unspecified (principal)
CPT/HCPCS: 36415; 80048

== ENCOUNTER 2024-06-13 08:28 | Day surgery (SDC) | payer MEDICAID, SELFPAY ==
[2024-06-13] VITALS (7 sets, daily range): BP systolic 88–120; BP diastolic 65–73; PULSE 76–92; RESP 16; TEMP 36.1–37.2; O2SAT 93–96; BMI 45.4
[2024-06-13 09:10] LABS: Internal QC Validated? YES +Cl - CLEAR BKGD; Pregnancy, Urine Negative Negative; Record Kit Lot#,Urine Preg 885059
--- NOTE | 2024-06-13 10:01 | PRE.ANES_ITS ---
ASA Classification* ASA Classification ASA Classification: 3 Assessment & Plan Anesthesia* Anesthesia Assessment Anesthesia Assessment: Discussed sedation and/or anesthesia options, risks, benefits, and alternatives with patient/parents/legal guardian/POA. Questions invited. The patient/parents/legal guardian/POA seems to understand and agrees to proceed with anesthesia plan. Reviewed the physical assessment, medical history, allergy history and patient home medications list prior to surgery/procedure/anesthetic and documented any changes. Performed airway and anesthesia risk assessments. Anesthesia Type Anesthesia Type: MAC History Source History Obtained from:: Patient and Chart Anesthesia Focused Assessment* Temperature: 99.0 F Pulse Rate: 92 Blood Pressure: 120/65 Respiratory Rate: 16 Pulse Ox: 96 Oxygen Delivery Method: Room Air Airway Assessment Mouth opens: >3 cm Mallampati Score: IV Teeth Condition: Caps/Crowns (Left lower crown on the molar. 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 When Was Last Pacemaker Check QUESTION #4 FULL TEXT: You/Your Family Experience fever (hyperthermia) with Anesthesia Last Oral Intake Last Oral intake: Last Oral Intake NPO since 23:00 06/13/24 09:15 Meds taken in AM with sips of No 06/13/24 09:15 water? Meds patient instructed to take am of surgery PONV PONV - physical therapist technician: PONV - physical therapist technician Female Yes 06/07/24 15:13 HX of Motion Sickness No 06/07/24 15:13 HX of N/V After Surgery Yes 06/07/24 15:13 Non-Smoker Yes 06/07/24 15:13 Duration of Surgery greater No 06/07/24 15:13 than 60 minutes Number of Risk Factors 3 06/07/24 15:13 PONV Score Moderate Risk 06/07/24 15:13 Height & Weight Height & Weight: Anesthesia: Height & Weight Height 4 ft 2 in 06/13/24 09:15 Weight: 73.3 kg 06/13/24 09:15 Body Mass Index (BMI) 45.4 06/13/24 09:15 Respiratory Assessment Respiratory Assessment - physical therapist technician: Respiratory Tract Infection Hx - physical therapist technician Hx Respiratory Tract Infection No 06/07/24 15:13 STOP Sleep Apnea STOP Sleep Apnea - physical therapist technician: STOP Sleep Apnea - physical therapist technician Hx Hypertension No 06/07/24 15:13 Hx Sleep Apnea No 06/07/24 15:13 CPAP BIPAP Do you snore loudly (louder No 06/07/24 15:13 than talking or can be heard Do you often feel tired/ No 06/07/24 15:13 fatigued/ sleepy during daytime? Has anyone observed you stop No 06/07/24 15:13 breathing during sleep? STOP Results Negative 06/07/24 15:13 QUESTION #5 FULL TEXT : Do you snore loudly (louder than talking or can be heard through closed doors)? Tobacco Use History Tobacco Use History - physical therapist technician: Tobacco Use History - physical therapist technician Tobacco Use Smoking Status Never smoker 06/07/24 15:13 Hx Tobacco Use No 06/07/24 15:13 Years Smoking Packs Smoked per Day Smoking Cessation Date was within the last 15 years Hx Smoking Cessation Date Hx Smoking Cessation Counseling Hematologic Medial History Hematologic Hx - physical therapist technician: Hematologic Medical Hx - cone tender Hx of Blood Transfusion No 06/07/24 15:13 Hx of Transfusion in last 3 No 06/07/24 15:13 Months Date of Last Transfusion (if within last 3 months) Ever experience any problems No 06/07/24 15:13 with transfusion(s)? Specify any problems Hx of Preganancy in last 3 No 06/07/24 15:13 Months Nurse Filling Out Transfusion VLEHMAN 06/07/24 15:13 & Questions: Date: 06/07/24 06/07/24 15:13 Time: 15:16 06/07/24 15:13 Patient unable to answer at this time (ie. confused, unrespo /Reproduction History /Reproductive History - physical therapist technician: /Reproductive Hx- physical therapist technician Hx Now No 06/07/24 15:13 Gestational Age (in weeks): EDC: Hx Hx Para Hx Section SAB No 06/07/24 15:13 Active Medications Active Medications: Current Medications Generic Name Dose Route Start Last Admin Trade Name Freq PRN Reason Stop Dose Admin Ciprofloxacin 400 mg in 200 mls @ 200 mls/hr 06/13/24 09:55 Cipro IV 06/13/24 10:54 PREOP [facility] Medical History Sacral agenesis Bladder disease Urinary retention Neurogenic bladder Urge incontinence Ambulates with cane Non-smoker Shortness of breath on exertion Hx of fracture of leg Home Medications ?Medication ?Instructions ?Recorded ?Last Taken ?Type cholecalciferol (vitamin D3) 50 2,000 mcg PO DAILY 07/05/23 History mcg (2,000 unit) capsule Lactobacillus acidophilus 10 100 mmu cells PO DAILY 07/05/23 History billion cell capsule (Probacap) ascorbic acid (vitamin C) 500 mg 500 mg PO DAILY 06/1407/05/23 History tablet (Vitamin C) famotidine 20 mg tablet 20 mg PO DAILY 06/14/2306/16 History vibegron 75 mg tablet (Gemtesa) 75 mg PO DAILY 4 07/05/23 History Allergy/AdvReac Type Severity Reaction Status Date / Time azithromycin Allergy Hives Verified 06/13/24 09:13 benzoin Allergy Other Verified 06/13/24 09:13 cefadroxil (From Duricef) Allergy Anaphylaxis Verified 06/13/24 09:13 codeine Allergy Vomiting Verified 06/13/24 09:13 latex Allergy Swelling Verified 06/13/24 09:13 nitrofurantoin (From Allergy Anaphylaxis Verified 06/13/24 09:13 Macrodantin) Surgical History Hx of cystoscopy Hx of surgical procedure Hx of surgical procedure Hx of Achilles tendon repair Hx of total hip arthroplasty Hx of knee surgery Hx of spinal fusion Social History Smoking Status: Never smoker Review of Systems (Anesthesia) ROS Narrative System reviewed and no additional complaints, except as documented.
--- NOTE | 2024-06-13 10:46 | DCINST_ITS ---
Discharge Instructions Diet Discharge Diet: No restrictions Activity Discharge Activity: Return to Normal Activity Dressing / Incision Call your doctor if you observe: Fever of 101 or Higher, Inability to urinate and Inability to have a bowel movement Follow Up Care Please Follow Up With: Jocelyn Greer MD When: as scheduled Test Results: Test results from this visit will be discussed in further detail at your follow- up appointment, if applicable. Discharge Plan Admission Attending Provider: Jocelyn Greer Primary Care Provider: Wally Chandra Instructions Print Language: Luxembourger Discharge Orders/Prescriptions Prescriptions: Continued cholecalciferol (vitamin D3) 50 mcg (2,000 unit) capsule 2,000 mcg PO DAILY Patient Comments: TAKE 1 CAPSULE BY MOUTH EVERY DAY Gemtesa 75 mg tablet 75 mg PO DAILY Patient Comments: TAKE 1 TABLET BY MOUTH EVERY DAY famotidine 20 mg tablet 20 mg PO DAILY Patient Comments: TAKE 1 TABLET BY MOUTH EVERY DAY Probacap 10 billion cell capsule 100 mmu cells PO DAILY ascorbic acid (vitamin C) [Vitamin C] 500 mg tablet 500 mg PO DAILY Patient Comments: TAKE 1 TABLET BY MOUTH EVERY DAY Referrals / Follow Up: Wally Chandra DO [Primary Care Provider] - Disposition Disposition (needs filled in before D/C Order can be placed): Home, Self Care
[2024-06-13] MEDS: Ciprofloxacin 400 MG/200 ML BAG 200 MG IV (10:47)
[2024-06-13] MEDS: Botulinum Toxin A 100 Units Vial 300 UNITS IJ (10:54)
[2024-06-13] MEDS: 0.9% Normal Saline (Pres. free 10 ML Vial ×3 (10:54)
[2024-06-13] MEDS: 0.9% Saline Lock 10 ML Syringe IV (11:00)
--- NOTE | 2024-06-13 11:10 | PCM.POST.ANE ---
Anesthesia: Postop Eval I Current Vital Signs Temperature: 97.4 F Pulse Rate: 89 Blood Pressure: 113/71 Respiratory Rate: 16 Pulse Ox: 96 Oxygen Delivery Method: Room Air Assessment Airway patent: Yes Spontaneous unlabored respirations: Yes Mental status: Awake nausea: No Vomiting: No Anesthesia Complication: No Fluid Hydration Crystalloid volume administer (ml): 550 Total IV fluid infused: 550 Progress Note Anesthesia document: Postop Eval 1 completed: Yes
--- NOTE | 2024-06-13 11:25 | PCM.OPRPT ---
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 Informed consent was obtained. She was taken to the operating room placed on the operating room table. Anesthesia monitored the head, neck, airway, IV access and vital signs throughout the case. Once anesthesia was appropriate administered, she was placed into dorsolithotomy position was prepped and draped in usual sterile fashion. The cystoscope was inserted through the urethra under direct visualization into the urinary bladder. The bladder mucosa was visualized in its entirety finding no evidence of erythema, ulceration or growth. Using the Botox needle, 1 cc injections of the Botox are inserted in systematic fashion throughout the urinary bladder. A flush with normal saline was performed prior to injecting the Botox and at the end. The urinary bladder was then emptied and the cystoscope was removed. She was awakened and taken to the recovery room in good condition. There were no complications during the procedure. Surgical Findings: Mucosa without erythema, ulceration or tumor Complications Complications: No Admit VTE Documentation VTE Present on Admission: Yes VTE Mechan Device Prophylaxis: SCD's VTE Pharm Prophylaxis ordered?: No Reason prophylaxis not ordered: Treatment Not Indicated
--- NOTE | 2024-06-13 13:44 | PCM.POSTANE2 ---
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 Spontaneous unlabored Yes 06/13/24 11:11 TRAFFIC WORKFORCE REPRESENTATIVE.SHEREENWI respirations Mental status Awake 06/13/24 11:11 TRAFFIC WORKFORCE REPRESENTATIVE.JSWI nausea No 06/13/24 11:11 TRAFFIC WORKFORCE REPRESENTATIVE.JSWI Vomiting No 06/13/24 11:11 TRAFFIC WORKFORCE REPRESENTATIVE.JSWI Anesthesia Postop Eval I: Fluid Summary Crystalloid volume administer 550 06/13/24 11:11 TRAFFIC WORKFORCE REPRESENTATIVE.JSWI (ml) Colloids volume administered ( ml) Blood Product volume administered (ml) Total IV fluid infused 550 06/13/24 11:11 TRAFFIC WORKFORCE REPRESENTATIVE.[email or web address] Anesthesia Postop Eval I: Summary Notes Anesthesia Complication No 06/13/24 11:11 TRAFFIC WORKFORCE REPRESENTATIVE.JSWI Anesthesia Complication Comment: Post-operative progress note Anesthesia: Postop Eval II Evaluation Mental status: Awake and Calm Pain Level: 1 nausea: No Vomiting: No Complications Anesthesia Complication: No
--- NOTE | 2024-06-13 13:44 | POSTOPAN2_ITS ---
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 Spontaneous unlabored Yes 06/13/24 11:11 RETAIL WAREHOUSE SUPERVISOR.[email or web address] respirations Mental status Awake 06/13/24 11:11 RETAIL WAREHOUSE SUPERVISOR.JSWI nausea No 06/13/24 11:11 RETAIL WAREHOUSE SUPERVISOR.JSWI Vomiting No 06/13/24 11:11 RETAIL WAREHOUSE SUPERVISOR.JSWI Anesthesia Postop Eval I: Fluid Summary Crystalloid volume administer 550 06/13/24 11:11 RETAIL WAREHOUSE SUPERVISOR.JSWI (ml) Colloids volume administered ( ml) Blood Product volume administered (ml) Total IV fluid infused 550 06/13/24 11:11 RETAIL WAREHOUSE SUPERVISOR.[email or web address] Anesthesia Postop Eval I: Summary Notes Anesthesia Complication No 06/13/24 11:11 RETAIL WAREHOUSE SUPERVISOR.JSWI Anesthesia Complication Comment: Post-operative progress note Anesthesia: Postop Eval II Evaluation Mental status: Awake and Calm Pain Level: 1 nausea: No Vomiting: No Complications Anesthesia Complication: No
== END 2024-06-13 12:10 | disposition home or self-care (01) ==
LOC: SDC 08:30 → AC 08:31
PROVIDERS: Referring Provider Urology; Visit Provider Urology
PROC: 3E0K8GC Introduction of Other Therapeutic Substance into Genitourinary Tract, Via Natural or Artificial Opening Endoscopic (ICD-10-PCS; CPT 52287; principal; 2024-06-13 09:45)
DX: N31.9 Neuromuscular dysfunction of bladder, unspecified (principal); R33.9 Retention of urine, unspecified; N39.0 Urinary tract infection, site not specified; N39.41 Urge incontinence; K59.2 Neurogenic bowel, not elsewhere classified
CPT/HCPCS: 52287; 00910; 81025; A4216; J0585; J0744; J2405

== ENCOUNTER → 2024-08-19 | Outpatient (CLI) | payer MEDICAID, SELFPAY ==
--- NOTE | 2024-08-19 11:57 | US_ITS ---
PROCEDURE: KIDNEY AND BLADDER ([facility]), 08/19/2024 REASON FOR EXAM: NEUROMUSCULAR DYSFUNCTION OF BLADDER, UNSPECIFIED TECHNIQUE: Grayscale and color/spectral doppler ultrasound of the kidneys and bladder was performed. COMPARISON: None FINDINGS: Right kidney: 7.5 cm in length. 1.4 x 1.3 x 1.0 cm cyst. No visualized calculus or hydronephrosis. Left kidney: 10.2 cm in length. No visualized mass, calculus, or hydronephrosis. Bladder: Underdistended and suboptimally evaluated; grossly unremarkable. Estimated volume 125 mL. Borderline wall thickness of 3 mm. Estimated postvoid residual 14 mL. Other: Echogenic appearance of the liver on some images. US/Kidney and Bladder IMPRESSION: 1. RIGHT renal atrophy without hydronephrosis on either side. 2. Suspected medical liver disease. Correlate with clinical and laboratory fany luation. 3. Borderline bladder wall thickening versus underdistention. Correlate for cy stitis or versus urinary retention. 4. Additional description as above. Reading Location: [id number]
== END | disposition home or self-care (01) ==
LOC: US 11:55
PROVIDERS: Referring Provider Urology; Visit Provider Urology
DX: N31.9 Neuromuscular dysfunction of bladder, unspecified (principal); R33.9 Retention of urine, unspecified
CPT/HCPCS: 76770